=== PATIENT | male | born 1965 | race Caucasian/White ===

== ENCOUNTER 2019-04-16 12:33 | Emergency (ER) | payer BC ==
--- OUTSIDE RECORDS SUMMARY | 2019-04-16 12:35 | XMS REPORT ---
:1965 Author Organization [facility] Address [address] [place] [address] Care Team Providers Name Role Phone VINNY KUHN Unavailable Unavailable Problems This patient has no known problems. Allergies, Adverse Reactions, Alerts This patient has no known allergies or adverse reactions. Medications This patient has no known medications. Results Test Description Test Time Test Comments Text Results Atomic Results Result Comments MAGNESIUM 2018-01-03 11:37:00 Test Item Value Reference Range Comments MAGNESIUM (BEAKER) (test yjwi=313) 1.9 mg/dL 1.6-2.6 COMPREHENSIVE METABOLIC [id number] 11:37:00 Test Item Value Reference Range Comments TOTAL PROTEIN (BEAKER) 5.6 gm/dL 6.0-8.3 (test wdnd=197) ALBUMIN (BEAKER) (test 3.1 g/dL 3.5-5.0 odny=5102) ALKALINE PHOSPHATASE 54 U/L 40-150 (BEAKER) (test xitw=668) BILIRUBIN TOTAL (BEAKER) 0.6 mg/dL 0.2-1.2 (test lxgw=305) SODIUM (BEAKER) (test 143 meq/L 136-145 ytwp=229) POTASSIUM (BEAKER) (test 3.9 meq/L 3.5-5.1 htwm=790) CHLORIDE (BEAKER) (test 107 meq/L 98-107 kpvm=491) CO2 (BEAKER) (test 28 meq/L 22-29 mebx=244) BLOOD UREA NITROGEN 13 mg/dL 7-21 (BEAKER) (test eddb=589) CREATININE (BEAKER) (test 0.85 mg/dL 0.57-1.25 dsuo=543) GLUCOSE RANDOM (BEAKER) 91 mg/dL 70-105 (test yjvs=863) CALCIUM (BEAKER) (test 9.1 mg/dL 8.4-10.2 hlse=525) AST (SGOT) (BEAKER) (test 14 U/L 5-34 ooib=445) ALT (SGPT) (BEAKER) (test 14 U/L 6-55 mqht=153) EGFR (BEAKER) (test 95 mL/min/1.73 sq m ESTIMATED GFR IS NOT ivzc=9274) ACCURATE CREATININE CLEARANCE IN PREDICTING GLOMERULAR FILTRATION RATE. ESTIMATED GFR IS NOT APPLICABLE FOR DIALYSIS PATIENTS. CBC W/PLT COUNT & AUTO [id number] 11:07:00 Test Item Value Reference Range Comments WHITE BLOOD CELL COUNT (BEAKER) (test tukx=454) 6.3 K/ L 3.5-10.5 RED BLOOD CELL COUNT (BEAKER) (test uwac=444) 4.43 M/ L 4.63-6.08 HEMOGLOBIN (BEAKER) (test uvft=051) 13.9 GM/DL 13.7-17.5 HEMATOCRIT (BEAKER) (test eius=334) 43.3 % 40.1-51.0 MEAN CORPUSCULAR VOLUME (BEAKER) (test gpkl=659) 97.7 fL 79.0-92.2 MEAN CORPUSCULAR HEMOGLOBIN (BEAKER) (test 31.4 pg 25.7-32.2 xqsh=589) MEAN CORPUSCULAR HEMOGLOBIN CONC (BEAKER) (test 32.1 GM/DL 32.3-36.5 djkb=150) RED CELL DISTRIBUTION WIDTH (BEAKER) (test 13.2 % 11.6-14.4 qevh=419) PLATELET COUNT (BEAKER) (test ujnp=786) 272 K/CU MM 150-450 MEAN PLATELET VOLUME (BEAKER) (test myep=801) 9.3 fL 9.4-12.4 NUCLEATED RED BLOOD CELLS (BEAKER) (test 0 /100 WBC 0-0 bbvj=758) NEUTROPHILS RELATIVE PERCENT (BEAKER) (test 59 % lblc=423) LYMPHOCYTES RELATIVE PERCENT (BEAKER) (test 25 % vtcr=454) MONOCYTES RELATIVE PERCENT (BEAKER) (test 11 % rfjk=257) EOSINOPHILS RELATIVE PERCENT (BEAKER) (test 2 % jdqa=132) BASOPHILS RELATIVE PERCENT (BEAKER) (test 1 % lqdr=862) NEUTROPHILS ABSOLUTE COUNT (BEAKER) (test 3.73 K/ L 1.78-5.38 ucew=580) LYMPHOCYTES ABSOLUTE COUNT (BEAKER) (test 1.56 K/ L 1.32-3.57 gubj=517) MONOCYTES ABSOLUTE COUNT (BEAKER) (test 0.70 K/ L 0.30-0.82 dkkw=293) EOSINOPHILS ABSOLUTE COUNT (BEAKER) (test 0.14 K/ L 0.04-0.54 xnrd=279) BASOPHILS ABSOLUTE COUNT (BEAKER) (test 0.09 K/ L 0.01-0.08 onuo=397) IMMATURE GRANULOCYTES-RELATIVE PERCENT (BEAKER) 1 % 0-1 (test rbjm=1791) [id number] 11:35:00 Test Item Value Reference Range Comments MAGNESIUM (BEAKER) (test qtmj=204) 2.0 mg/dL 1.6-2.6 COMPREHENSIVE METABOLIC [id number] 11:35:00 Test Item Value Reference Range Comments TOTAL PROTEIN (BEAKER) 5.0 gm/dL 6.0-8.3 (test awca=682) ALBUMIN (BEAKER) (test 2.7 g/dL 3.5-5.0 uyhl=8578) ALKALINE PHOSPHATASE 53 U/L 40-150 (BEAKER) (test vlbm=304) BILIRUBIN TOTAL (BEAKER) 0.4 mg/dL 0.2-1.2 (test kufu=645) SODIUM (BEAKER) (test 140 meq/L 136-145 eohn=776) POTASSIUM (BEAKER) (test 3.7 meq/L 3.5-5.1 zccv=234) CHLORIDE (BEAKER) (test 108 meq/L 98-107 qhjf=144) CO2 (BEAKER) (test 27 meq/L 22-29 hluj=109) BLOOD UREA NITROGEN 12 mg/dL 7-21 (BEAKER) (test kloo=141) CREATININE (BEAKER) (test 0.84 mg/dL 0.57-1.25 jbcb=274) GLUCOSE RANDOM (BEAKER) 67 mg/dL 70-105 (test hdsy=778) CALCIUM (BEAKER) (test 8.4 mg/dL 8.4-10.2 nsbv=697) AST (SGOT) (BEAKER) (test 15 U/L 5-34 ptht=294) ALT (SGPT) (BEAKER) (test 17 U/L 6-55 ifzq=865) EGFR (BEAKER) (test 96 mL/min/1.73 sq m ESTIMATED GFR IS NOT onpz=5801) ACCURATE CREATININE CLEARANCE IN PREDICTING GLOMERULAR FILTRATION RATE. ESTIMATED GFR IS NOT APPLICABLE FOR DIALYSIS PATIENTS. CBC W/PLT COUNT & AUTO [id number] 11:01:00 Test Item Value Reference Range Comments WHITE BLOOD CELL COUNT (BEAKER) (test ddaz=356) 6.0 K/ L 3.5-10.5 RED BLOOD CELL COUNT (BEAKER) (test fzel=796) 3.97 M/ L 4.63-6.08 HEMOGLOBIN (BEAKER) (test hzvl=617) 12.6 GM/DL 13.7-17.5 HEMATOCRIT (BEAKER) (test zlnd=634) 39.0 % 40.1-51.0 MEAN CORPUSCULAR VOLUME (BEAKER) (test mvjp=616) 98.2 fL 79.0-92.2 MEAN CORPUSCULAR HEMOGLOBIN (BEAKER) (test 31.7 pg 25.7-32.2 lezu=427) MEAN CORPUSCULAR HEMOGLOBIN CONC (BEAKER) (test 32.3 GM/DL 32.3-36.5 ctzm=024) RED CELL DISTRIBUTION WIDTH (BEAKER) (test 13.1 % 11.6-14.4 cxqi=435) PLATELET COUNT (BEAKER) (test jttp=254) 222 K/CU MM 150-450 MEAN PLATELET VOLUME (BEAKER) (test ghqw=617) 9.6 fL 9.4-12.4 NUCLEATED RED BLOOD CELLS (BEAKER) (test 0 /100 WBC 0-0 gobx=312) NEUTROPHILS RELATIVE PERCENT (BEAKER) (test 62 % kgoz=581) LYMPHOCYTES RELATIVE PERCENT (BEAKER) (test 23 % cfdd=872) MONOCYTES RELATIVE PERCENT (BEAKER) (test 11 % kavp=857) EOSINOPHILS RELATIVE PERCENT (BEAKER) (test 2 % nhni=988) BASOPHILS RELATIVE PERCENT (BEAKER) (test 1 % rjkn=049) NEUTROPHILS ABSOLUTE COUNT (BEAKER) (test 3.72 K/ L 1.78-5.38 xnms=188) LYMPHOCYTES ABSOLUTE COUNT (BEAKER) (test 1.36 K/ L 1.32-3.57 ffql=776) MONOCYTES ABSOLUTE COUNT (BEAKER) (test 0.65 K/ L 0.30-0.82 pkhf=278) EOSINOPHILS ABSOLUTE COUNT (BEAKER) (test 0.14 K/ L 0.04-0.54 yzhq=884) BASOPHILS ABSOLUTE COUNT (BEAKER) (test 0.07 K/ L 0.01-0.08 arsx=557) IMMATURE GRANULOCYTES-RELATIVE PERCENT (BEAKER) 1 % 0-1 (test rizn=6732) URINALYSIS W/ [id number] 16:17:00 Test Item Value Reference Range Comments COLOR (BEAKER) (test eucb=386) Yellow CLARITY (BEAKER) (test jesu=101) Clear SPECIFIC GRAVITY UA (BEAKER) (test buwg=849) 1.011 1.001-1.035 PH UA (BEAKER) (test jdnv=488) 6.0 5.0-8.0 PROTEIN UA (BEAKER) (test wlnh=685) 300 mg/dL Negative GLUCOSE UA (BEAKER) (test pgyj=492) Negative Negative KETONES UA (BEAKER) (test ixxg=521) Negative Negative BILIRUBIN UA (BEAKER) (test cbjr=307) Negative Negative BLOOD UA (BEAKER) (test jriv=182) Moderate Negative NITRITE UA (BEAKER) (test sonu=915) Negative Negative LEUKOCYTE ESTERASE UA (BEAKER) (test umex=689) Negative Negative UROBILINOGEN UA (BEAKER) (test ltmj=430) 0.2 mg/dL 0.2-1.0 RBC UA (BEAKER) (test embs=737) 3 /HPF WBC UA (BEAKER) (test tqap=373) 2 /HPF MUCUS (BEAKER) (test bniw=7536) Rare SOURCE(BEAKER) (test lcpj=6767) [id number] 15:50:00 Test Item Value Reference Range Comments MAGNESIUM (BEAKER) (test ceyg=898) 1.8 mg/dL 1.6-2.6 COMPREHENSIVE METABOLIC [id number] 15:50:00 Test Item Value Reference Range Comments TOTAL PROTEIN (BEAKER) 5.6 gm/dL 6.0-8.3 (test wcvn=389) ALBUMIN (BEAKER) (test 3.1 g/dL 3.5-5.0 jabt=9458) ALKALINE PHOSPHATASE 50 U/L 40-150 (BEAKER) (test tmgn=256) BILIRUBIN TOTAL (BEAKER) 0.4 mg/dL 0.2-1.2 (test tdvk=859) SODIUM (BEAKER) (test 143 meq/L 136-145 wdft=454) POTASSIUM (BEAKER) (test 3.8 meq/L 3.5-5.1 xmxh=680) CHLORIDE (BEAKER) (test 105 meq/L 98-107 lnnc=114) CO2 (BEAKER) (test 24 meq/L 22-29 xbff=021) BLOOD UREA NITROGEN 12 mg/dL 7-21 (BEAKER) (test snym=047) CREATININE (BEAKER) (test 0.79 mg/dL 0.57-1.25 ulvc=357) GLUCOSE RANDOM (BEAKER) 109 mg/dL 70-105 (test izwn=205) CALCIUM (BEAKER) (test 9.2 mg/dL 8.4-10.2 wbyg=965) AST (SGOT) (BEAKER) (test 16 U/L 5-34 apwy=436) ALT (SGPT) (BEAKER) (test 16 U/L 6-55 glfx=087) EGFR (BEAKER) (test 103 mL/min/1.73 sq ESTIMATED GFR IS NOT peyj=9230) m ACCURATE CREATININE CLEARANCE IN PREDICTING GLOMERULAR FILTRATION RATE. ESTIMATED GFR IS NOT APPLICABLE FOR DIALYSIS PATIENTS. PROTEIN, RANDOM [id number] 15:10:00 Test Item Value Reference Range Comments PROTEIN, URINE (BEAKER) (test ktvy=2254) 285 mg/dL 0-14 CREATININE, RANDOM [id number] 14:54:00 Test Item Value Reference Range Comments CREATININE URINE (BEAKER) (test xtzt=852) 119.2 mg/dL Reference Range: No NormalsPROTHROMBIN [id number] 14:33:00 Test Item Value Reference Range Comments PROTIME (BEAKER) (test qhwb=476) 18.1 seconds 11.7-14.7 INR (BEAKER) (test xstb=474) 1.5 <=5.9 RECOMMENDED COUMADIN/WARFARIN INR THERAPY RANGESSTANDARD DOSE: 2.0 - 3.0 Includes: PROPHYLAXIS forvenous thrombosis, systemic embolization; TREATMENT for venous thrombosis and/or pulmonary embolus.HIGH RISK: Target INR is 2.5-3.5 for patients with mechanical heart valves.CBC W/PLT COUNT & AUTO [id number] 14:29:00 Test Item Value Reference Range Comments WHITE BLOOD CELL COUNT (BEAKER) (test qmqi=416) 9.2 K/ L 3.5-10.5 RED BLOOD CELL COUNT (BEAKER) (test eler=866) 4.64 M/ L 4.63-6.08 HEMOGLOBIN (BEAKER) (test irks=076) 14.4 GM/DL 13.7-17.5 HEMATOCRIT (BEAKER) (test hpvn=801) 45.1 % 40.1-51.0 MEAN CORPUSCULAR VOLUME (BEAKER) (test dgmr=404) 97.2 fL 79.0-92.2 MEAN CORPUSCULAR HEMOGLOBIN (BEAKER) (test 31.0 pg 25.7-32.2 htzx=805) MEAN CORPUSCULAR HEMOGLOBIN CONC (BEAKER) (test 31.9 GM/DL 32.3-36.5 ozup=169) RED CELL DISTRIBUTION WIDTH (BEAKER) (test 13.3 % 11.6-14.4 yjfj=503) PLATELET COUNT (BEAKER) (test lvzm=402) 297 K/CU MM 150-450 MEAN PLATELET VOLUME (BEAKER) (test wefz=190) 9.6 fL 9.4-12.4 NUCLEATED RED BLOOD CELLS (BEAKER) (test 0 /100 WBC 0-0 bgpj=219) NEUTROPHILS RELATIVE PERCENT (BEAKER) (test 74 % akzg=189) LYMPHOCYTES RELATIVE PERCENT (BEAKER) (test 15 % lbhy=599) MONOCYTES RELATIVE PERCENT (BEAKER) (test 8 % kfgc=342) EOSINOPHILS RELATIVE PERCENT (BEAKER) (test 1 % npwi=118) BASOPHILS RELATIVE PERCENT (BEAKER) (test 1 % kimw=989) NEUTROPHILS ABSOLUTE COUNT (BEAKER) (test 6.82 K/ L 1.78-5.38 yyxq=674) LYMPHOCYTES ABSOLUTE COUNT (BEAKER) (test 1.41 K/ L 1.32-3.57 wmxg=682) MONOCYTES ABSOLUTE COUNT (BEAKER) (test 0.69 K/ L 0.30-0.82 eiep=915) EOSINOPHILS ABSOLUTE COUNT (BEAKER) (test 0.11 K/ L 0.04-0.54 rrgc=856) BASOPHILS ABSOLUTE COUNT (BEAKER) (test 0.07 K/ L 0.01-0.08 pjdr=288) IMMATURE GRANULOCYTES-RELATIVE PERCENT (BEAKER) 1 % 0-1 (test ahow=8661) [id number] 14:49:00 Test Item Value Reference Range Comments MAGNESIUM (BEAKER) (test aebc=581) 1.9 mg/dL 1.6-2.6 COMPREHENSIVE METABOLIC [id number] 14:49:00 Test Item Value Reference Range Comments TOTAL PROTEIN (BEAKER) 5.4 gm/dL 6.0-8.3 (test blet=322) ALBUMIN (BEAKER) (test 2.9 g/dL 3.5-5.0 nkgs=8926) ALKALINE PHOSPHATASE 52 U/L 40-150 (BEAKER) (test qpod=378) BILIRUBIN TOTAL (BEAKER) 0.3 mg/dL 0.2-1.2 (test cauo=314) SODIUM (BEAKER) (test 141 meq/L 136-145 zjxs=694) POTASSIUM (BEAKER) (test 3.6 meq/L 3.5-5.1 dcwh=748) CHLORIDE (BEAKER) (test 106 meq/L 98-107 divn=824) CO2 (BEAKER) (test 28 meq/L 22-29 xqax=729) BLOOD UREA NITROGEN 18 mg/dL 7-21 (BEAKER) (test mkdr=552) CREATININE (BEAKER) (test 1.03 mg/dL 0.57-1.25 xcxp=115) GLUCOSE RANDOM (BEAKER) 56 mg/dL 70-105 (test qyje=907) CALCIUM (BEAKER) (test 8.6 mg/dL 8.4-10.2 okyx=385) AST (SGOT) (BEAKER) (test 14 U/L 5-34 bgin=234) ALT (SGPT) (BEAKER) (test 13 U/L 6-55 rffq=277) EGFR (BEAKER) (test 76 mL/min/1.73 sq m ESTIMATED GFR IS NOT cpcj=3214) ACCURATE CREATININE CLEARANCE IN PREDICTING GLOMERULAR FILTRATION RATE. ESTIMATED GFR IS NOT APPLICABLE FOR DIALYSIS PATIENTS. CBC W/PLT COUNT & AUTO [id number] 14:33:00 Test Item Value Reference Range Comments WHITE BLOOD CELL COUNT (BEAKER) (test hwat=477) 6.1 K/ L 3.5-10.5 RED BLOOD CELL COUNT (BEAKER) (test mhbi=283) 4.18 M/ L 4.63-6.08 HEMOGLOBIN (BEAKER) (test qefw=726) 13.2 GM/DL 13.7-17.5 HEMATOCRIT (BEAKER) (test ynwu=310) 40.3 % 40.1-51.0 MEAN CORPUSCULAR VOLUME (BEAKER) (test nbwf=456) 96.4 fL 79.0-92.2 MEAN CORPUSCULAR HEMOGLOBIN (BEAKER) (test 31.6 pg 25.7-32.2 nhnd=592) MEAN CORPUSCULAR HEMOGLOBIN CONC (BEAKER) (test 32.8 GM/DL 32.3-36.5 ejfq=960) RED CELL DISTRIBUTION WIDTH (BEAKER) (test 13.4 % 11.6-14.4 qjsb=787) PLATELET COUNT (BEAKER) (test fasm=412) 255 K/CU MM 150-450 MEAN PLATELET VOLUME (BEAKER) (test alsv=631) 9.7 fL 9.4-12.4 NUCLEATED RED BLOOD CELLS (BEAKER) (test 0 /100 WBC 0-0 hcxy=752) NEUTROPHILS RELATIVE PERCENT (BEAKER) (test 54 % xzwk=282) LYMPHOCYTES RELATIVE PERCENT (BEAKER) (test 32 % gdru=217) MONOCYTES RELATIVE PERCENT (BEAKER) (test 9 % qlks=365) EOSINOPHILS RELATIVE PERCENT (BEAKER) (test 3 % swso=631) BASOPHILS RELATIVE PERCENT (BEAKER) (test 1 % rlmn=949) NEUTROPHILS ABSOLUTE COUNT (BEAKER) (test 3.30 K/ L 1.78-5.38 htpd=200) LYMPHOCYTES ABSOLUTE COUNT (BEAKER) (test 1.92 K/ L 1.32-3.57 qgmn=461) MONOCYTES ABSOLUTE COUNT (BEAKER) (test 0.57 K/ L 0.30-0.82 oxtc=997) EOSINOPHILS ABSOLUTE COUNT (BEAKER) (test 0.18 K/ L 0.04-0.54 xtwv=096) BASOPHILS ABSOLUTE COUNT (BEAKER) (test 0.08 K/ L 0.01-0.08 vrvz=131) IMMATURE GRANULOCYTES-RELATIVE PERCENT (BEAKER) 1 % 0-1 (test dcth=4408)
[2019-04-16 13:03] LABS: Absolute Lymphocytes (CBC) 1.5 K/uL (0.7-4.9); Basophils % 0.6 % (0-1.3); Hematocrit 41.6 % (39.6-49.0); Lymphocytes % 14.9 % (15.3-44.8); MPV 7.4 fL (7.6-11.3); RBC Red Blood Cell Count 4.43 M/uL (4.33-5.43)
[2019-04-16] MEDS ORDERED: FENTANYL CITR 100 MCG/2 ML ONE (13:12)
--- NOTE | 2019-04-16 13:30 | RAD REPORT ---
EXAM DESCRIPTION: CT - Head C Spine Cap Kemar Barlow - 04/16/2019 1:06 pm CLINICAL HISTORY: Fall, head, neck, chest and abdomen pain COMPARISON: CT chest abdomen and pelvis 2016 TECHNIQUE: Axial [address] head images were obtained. Axial [address] cervical spine images were obtaine d with sagittal and coronal reconstruction images reviewed. During dynamic enhancement of 100mL non-i onic contrast, axial 5 mm images of the chest, abdomen and pelvis were obtained. All CT scans are performed using dose optimization technique as appropriate and may include automated exposure control or mA/KV adjustment according to patient size. FINDINGS: No intracranial hemorrhage, mass or edema. No midline shift or abnormal fluid collection. Mastoid air cells and paranasal sinuses are clear. No skull fracture. CT cervical spine imaging shows normal height. Normal alignment of the vertebrae. No disc space narro wing. No paraspinal mass or hematoma seen. Posterior endplate spurring changes are present at C5-6 an d C6-7 with borderline to mild central spinal stenosis. Significant foraminal encroachment on the lef t at C5-6. Central canal detail is inherently limited. Concerns for traumatic disc herniation or trau matic cord injury can be further addressed with MR imaging. CT chest shows no pneumothorax, pulmonary contusion or pleural fluid collection. No mediastinal hemat sanford and the aorta and pulmonary arteries are unremarkable. No chest will mass or abnormal axillary fi nding. No displaced rib fracture or other significant bony finding. CT abdomen and pelvis show no injury to solid abdominal viscera. Gallbladder and biliary tree are unr emarkable. No bowel injury or significant finding. Diverticulosis is present in the sigmoid colon. No free air, free fluid or abnormal stranding. No urinary bladder abnormality. Disc and bone degenerative changes are present. Chronic left-side L5 pars interarticularis defect is seen. No acute bone finding identifiable. IMPRESSION: No hemorrhage or acute CT Head finding. Degenerative change as detailed without acute cervical spine finding. No acute traumatic injury to the chest and no significant CT chest finding. No traumatic injury to the abdomen or pelvis. No acute or significant finding.
[2019-04-16] MEDS ORDERED: NA CHLORIDE 0.9% 1,000 ML ONE (13:32)
[2019-04-16] MEDS ORDERED: HYDROMORPHONE HCL 1 MG/ML INJ ONE (13:37)
[2019-04-16] MEDS ORDERED: ONDANSETRON 4 MG/2 ML VIAL ONE (13:37)
--- NOTE | 2019-04-16 14:51 | RAD REPORT ---
EXAM DESCRIPTION: Shoulder Right 2 View - 04/16/2019 1:46 pm CLINICAL HISTORY: Fall, shoulder pain COMPARISON: None. TECHNIQUE: Internal and external rotation views of the right shoulder were obtained. FINDINGS: There is no fracture or dislocation. Relative widening of the AC joint is not outside of range of normal. A mild AC separation is not excluded and can be correlated with left AC joint as cli nical findings warrant. Degenerative changes are present to the undersurface of the acromion with vladimir rowed acromial humeral joint space. This can be indirect evidence of chronic rotator cuff tear. No ac buckland finding in the ribs and parenchyma of the upper chest. IMPRESSION: No fracture or dislocation of the proximal humerus. Prominent for age acromial humeral joint degenerative change with possible chronic rotator cuff tear. Mild AC joint separation cannot be excluded. No displacement of the clavicle. Comparison can be made with asymptomatic left shoulder as findings warrant.
--- NOTE | 2019-04-16 15:29 | ER ---
Nurse's Notes [facility] Name: Chay Matthews Jr Age: 53 yrs Sex: Male : 1965 Arrival Date: 04/16/2019 Time: 12:38 Bed 4 Private MD: Diagnosis: Other sprain of right shoulder joint;Rib Contusion Presentation: 04/16 12:38 Presenting complaint: EMS states: EMS states patient was in a "mccann cone picker" lift when ae4 a large branch struck the left while the lift was in raised in he air approx 30ft, knocking the lift and the patient to the ground (grass). The left crushed the patient's right shoulder. Transition of care: patient was not received from another setting of care. Onset of symptoms was April 16, 2019 at 12:00. Risk Assessment: Do you want to hurt yourself or someone else? Patient reports no desire to harm self or others. Care prior to arrival: Right shoulder splint applied, c-collar applied, c spine cleared on scene,c-collar reapplied per provider. 20 G IV inserted by EMS to right AC. 12:38 Method Of Arrival: EMS: [facility] ae4 12:38 Acuity: BIJAL 2 ae4 14:51 Initial Sepsis Screen: Does the patient meet any 2 criteria? No. Patient's initial ae4 sepsis screen is negative. Does the patient have a suspected source of infection? No. Patient's initial sepsis screen is negative. Triage Assessment: 12:48 General: Appears uncomfortable, slender, Behavior is calm, cooperative. Pain: Complains ae4 of pain in anterior aspect of right shoulder and posterior aspect of right shoulder Pain does not radiate. Pain currently is 10 out of 10 on a pain scale. EENT: No signs and/or symptoms were reported regarding the EENT system. Neuro: Level of Consciousness is awake, alert, obeys commands, Oriented to person, place, time, situation, Appropriate for age. Cardiovascular: Heart tones S1 S2 present Patient's skin is warm and dry. Rhythm is regular. Respiratory: Airway is patent Respiratory effort is even, unlabored, shallow, Respiratory pattern is regular, symmetrical, Breath sounds are clear bilaterally. Breath sounds with rales in left lower lobe Crepitus is noted on left lateral anterior chest. GI: No signs and/or symptoms were reported involving the gastrointestinal system. Abdomen is round Bowel sounds present X 4 quads. Abd is soft and non tender X 4 quads. : No signs and/or symptoms were reported regarding the genitourinary system. Derm: Skin is pink, warm \\T\\ dry. Derm: Wound noted anterior aspect of right shoulder Other: Redness, and abrasions to posterior right shoulder. Musculoskeletal: Swelling present in anterior aspect of right shoulder and posterior aspect of right shoulder. Historical: - Allergies: 14:18 No Known Allergies; ae4 - Home Meds: 13:09 lisinopril 40 mg Oral tab 1 tab once daily [Active]; prednisone 1 mg Oral tab once ae4 daily [Active]; metoprolol tartrate 25 mg Oral tab 1 tab once daily [Active]; aspirin 81 mg Oral chew 1 tab once daily [Active]; Vitamin D 50 mcg once daily Oral [Active]; - PMHx: 13:09 scrotal mass; Hypertension; ae4 - Immunization history:: Adult Immunizations up to date, Last tetanus immunization: up to date. - Social history:: Smoking status: Patient uses tobacco products, smokes one-half pack cigarettes per day. - Ebola Screening: : Patient denies travel to an Ebola-affected area in the 21 days before illness onset No symptoms or risks identified at this time. Screenin:14 Abuse screen: Denies threats or abuse. Nutritional screening: No deficits noted. ae4 Tuberculosis screening: No symptoms or risk factors identified. Fall Risk Fall in past 12 months (25 points). No secondary diagnosis (0 pts). IV access (20 points). Ambulatory Aid- None/Bed Rest/Nurse Assist (0 pts). Gait- Weak (10 pts.). Mental Status- Oriented to own ability (0 pts). Assessment: 13:00 Pain: Complains of pain in left breast. ae4 13:46 Reassessment: Radiology at bedside obtaining shoulder x-ray. Patient states feeling ae4 better. 14:14 Reassessment: Patient appears in no apparent distress at this time. Patient and/or ae4 family updated on plan of care and expected duration. Pain level reassessed. Patient states feeling better. Patient states symptoms have improved. Vital Signs: 12:42 BP 138 / 85; Pulse 73; Resp 18; Temp 98.3(O); Pulse Ox 100% on R/A; Weight 74.84 kg (R);ae4 13:21 BP 131 / 90; Pulse 75; Resp 20; Pulse Ox 99% on R/A; ae4 13:46 BP 126 / 87; Pulse 73; Resp 15; Pulse Ox 96% on R/A; ae4 14:14 BP 114 / 72; Pulse 62; Resp 15; Pulse Ox 100% on R/A; ae4 14:42 BP 115 / 68; Pulse 64; Resp 16; Pulse Ox 99% ; ae4 ED Course: 11:48 Maintain EMS IV. Dressing intact. Good blood return noted. Site clean \\T\\ dry. Gauge \\T\\ ae 4 site: 20 G right AC.. 12:38 Patient arrived in ED. iw 12:41 Venkat Boogie PA is PHCP. jmm 12:41 Guillermo Aguirre MD is Attending Physician. jmm 12:42 Nolberto Bui RN is Primary Nurse. ae4 12:48 Placed in gown. Bed in low position. Call light in reach. Side rails up X2. Cardiac ae4 monitor on. Pulse ox on. NIBP on. Warm blanket given. 12:48 Arm band placed on left wrist. ae4 13:06 CT Traumagram (Head C Spine CAP W Con) In Process Unspecified. EDMS 13:07 Triage completed. ae4 13:47 Shoulder Right (2 View) XRAY In Process Unspecified. EDMS 15:34 INCENTIVE SPIROMETRY Sent. ae4 16:00 No provider procedures requiring assistance completed. IV discontinued, intact, ae4 bleeding controlled, No redness/swelling at site. Pressure dressing applied. Administered Medications: 13:00 Drug: Zofran 4 mg Route: IVP; Site: right antecubital; ae4 13:42 Follow up: Response: No adverse reaction; No adverse reactio, no nausea with pain ae4 medication administration. 13:14 Drug: fentaNYL (PF) 50 mcg Route: IVP; Site: right antecubital; ae4 13:42 Follow up: Response: Pain is unchanged, physician notified ae4 13:42 Follow up: Response: RASS: Restless (+1) ae4 13:30 Drug: NS 0.9% 1000 ml Route: IV; Rate: 1 bolus; Site: right antecubital; jl7 13:41 Drug: Dilaudid 1 mg Route: IVP; Site: right antecubital; ae4 13:42 Follow up: Response: Pain is decreased; RASS: Alert and Calm (0) ae4 Outcome: 15:28 Discharge ordered by . mert 15:57 Patient left the ED. ae4 15:57 Discharged to home ambulatory. ae4 15:57 Condition: stable 15:57 Discharge instructions given to patient, significant other, Instructed on discharge instructions, follow up and referral plans. medication usage, Demonstrated understanding of instructions, follow-up care, medications, Prescriptions given X 1. Signatures: Dispatcher [employer] EDMS Venkat Boogie PA PA jmm Williams, Irene, RN Garrett Guillermo RN RN [id number] Nolberto Bui RN RN ae4 Corrections: (The following items were deleted from the chart) 14:17 11:48 Placed in gown. Bed in low position. Call light in reach. Side rails up X2. ae4 ae4 14:17 11:48 staff sonographer on. Pulse ox on. NIBP on. ae4 ae4 14:17 11:48 Warm blanket given. ae4 ae4 17:47 13:46 Reassessment: Radiology at bedside obtaining shoulder x-ray. ae4 ae4
--- NOTE | 2019-04-16 15:29 | EDPHYS ---
Physician Documentation [facility] Name: Chay Matthews Jr Age: 53 yrs Sex: Male : 1965 Arrival Date: 04/16/2019 Time: 12:38 Bed 4 Private MD: ED Physician Guillermo Aguirre HPI: 04/16 12:39 This 53 yrs old Male presents to ER via EMS with complaints of Trauma jmm Complaint, Shoulder Injury. 12:39 Trauma demographics: County: The injury occurred in [place]. Mechanism of injury: jmm Fall:. Associated injuries: The patient sustained injury to the chest. Onset: The symptoms/episode began/occurred acutely. This is a 53 year old male with a history of htn that presents to the ED with complaints of left sided rib pain and right shoulder pain which occurred just prior to arrival. 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 Denies LOC. . Historical: - Allergies: 14:18 No Known Allergies; ae4 - Home Meds: 13:09 lisinopril 40 mg Oral tab 1 tab once daily [Active]; prednisone 1 mg Oral tab once ae4 daily [Active]; metoprolol tartrate 25 mg Oral tab 1 tab once daily [Active]; aspirin 81 mg Oral chew 1 tab once daily [Active]; Vitamin D 50 mcg once daily Oral [Active]; - PMHx: 13:09 scrotal mass; Hypertension; ae4 - Immunization history:: Adult Immunizations up to date, Last tetanus immunization: up to date. - Social history:: Smoking status: Patient uses tobacco products, smokes one-half pack cigarettes per day. - Ebola Screening: : Patient denies travel to an Ebola-affected area in the 21 days before illness onset No symptoms or risks identified at this time. ROS: 12:39 Constitutional: Negative for fever, chills, and weight loss, Neck: Negative for injury, jmm pain, and swelling, Cardiovascular: Negative for chest pain, palpitations, and edema, Respiratory: Negative for shortness of breath, cough, wheezing, and pleuritic chest pain, Abdomen/GI: Negative for abdominal pain, nausea, vomiting, diarrhea, and constipation, Back: Negative for injury and pain. 12:39 MS/extremity: Positive for injury or acute deformity. 12:39 All other systems are negative. Exam: 12:39 Eyes: EOMI, no conjunctival erythema appreciated ENT: Moist Mucus Membranes [facility] 12:39 Constitutional: The patient appears in no acute distress, alert, awake. 12:39 Head/face: Exam is negative for acute changes, obvious evidence of injury or deformity, abrasion(s), beth signs, contusion, deformity, ecchymosis, erythema, hematoma, laceration(s), raccoon eyes, swelling, tenderness. 12:39 Neck: C-spine: appears grossly normal, no vertebral tenderness, no crepitus. 12:39 Chest/axilla: Palpation: tenderness, that is moderate, of the left lateral anterior chest. 12:39 Cardiovascular: Rate: normal, Rhythm: regular. 12:39 Respiratory: the patient does not display signs of respiratory distress, Respirations: normal, Breath sounds: are clear throughout. 12:39 Abdomen/GI: Inspection: abdomen appears normal, Bowel sounds: normal, Palpation: abdomen is soft and non-tender, in all quadrants. 12:39 Musculoskeletal/extremity: ROM: intact in all extremities, right anterior shoulder ttp, painful rom, full radial pulse, NVI. 12:39 Skin: Appearance: Color: normal in color. 12:39 Neuro: Orientation: is normal, Mentation: is normal, Memory: is normal. 12:39 Psych: Behavior/mood is pleasant, cooperative. Vital Signs: 12:42 BP 138 / 85; Pulse 73; Resp 18; Temp 98.3(O); Pulse Ox 100% on R/A; Weight 74.84 kg (R);ae4 13:21 BP 131 / 90; Pulse 75; Resp 20; Pulse Ox 99% on R/A; ae4 13:46 BP 126 / 87; Pulse 73; Resp 15; Pulse Ox 96% on R/A; ae4 14:14 BP 114 / 72; Pulse 62; Resp 15; Pulse Ox 100% on R/A; ae4 14:42 BP 115 / 68; Pulse 64; Resp 16; Pulse Ox 99% ; ae4 MDM: 12:41 Patient medically screened. mert 15:27 Data reviewed: vital signs, nurses notes. Counseling: I had a detailed discussion with mert the patient and/or guardian regarding: the historical points, exam findings, and any diagnostic results supporting the discharge/admit diagnosis, radiology results, the need for outpatient follow up, to return to the emergency department if symptoms worsen or persist or if there are any questions or concerns that arise at home. 04/16 12:39 Order name: Basic Metabolic Panel; Complete Time: 13:23 [facility] 04/16 12:39 Order name: CBC with Diff; Complete Time: 13:23 [facility] 04/16 12:39 Order name: CT Traumagram (Head C Spine CAP W Con); Complete Time: 13:30 [facility] 04/16 12:39 Order name: Creatinine for Radiology; Complete Time: 13:23 [facility] 04/16 12:39 Order name: Type And Screen; Complete Time: 13:41 [facility] 04/16 13:05 Order name: Shoulder Right (2 View) XRAY; Complete Time: 15:30 [facility] 04/16 12:39 Order name: Labs collected and sent; Complete Time: 12:57 [facility] 04/16 14:39 Order name: Sling; Complete Time: 15:34 [facility] 04/16 14:44 Order name: INCENTIVE SPIROMETRY [facility] Administered Medications: 13:00 Drug: Zofran 4 mg Route: IVP; Site: right antecubital; ae4 13:42 Follow up: Response: No adverse reaction; No adverse reactio, no nausea with pain ae4 medication administration. 13:14 Drug: fentaNYL (PF) 50 mcg Route: IVP; Site: right antecubital; ae4 13:42 Follow up: Response: Pain is unchanged, physician notified ae4 13:42 Follow up: Response: RASS: Restless (+1) ae4 13:30 Drug: NS 0.9% 1000 ml Route: IV; Rate: 1 bolus; Site: right antecubital; jl7 13:41 Drug: Dilaudid 1 mg Route: IVP; Site: right antecubital; ae4 13:42 Follow up: Response: Pain is decreased; RASS: Alert and Calm (0) ae4 Disposition: 04/17 07:48 Co-signature as Attending Physician, Guillermo Aguirre MD I agree with the assessment and kdr plan of care. Disposition: 04/16/19 15:28 Discharged to Home. Impression: Other sprain of right shoulder joint, Rib Contusion. - Condition is Stable. - Discharge Instructions: Rib Contusion, Shoulder Pain, Incentive Spirometer, Shoulder Sprain. - Prescriptions for Tylenol- Codeine #3 300-30 mg Oral Tablet - take 1 tablet by ORAL route every 6 hours As needed; 20 tablet. - Medication Reconciliation Form, Thank You Letter, Antibiotic Education, Prescription Opioid Use form. - Follow up: Private Physician; When: 2 - 3 days; Reason: Recheck today's complaints, Continuance of care, Re-evaluation by your physician. Signatures: Dispatcher [employer] EDMS Guillermo Aguirre MD MD kdr Mickail, Joel, PA PA jmm Leal, Jahala, RN RN jl7 Nolberto Bui, RN RN ae4 Corrections: (The following items were deleted from the chart) 04/16 15:57 15:28 04/16/2019 15:28 Discharged to Home. Impression: Other sprain of right shoulder ae4 joint; Rib Contusion. Condition is Stable. Forms are Medication Reconciliation Form, Thank You Letter, Antibiotic Education, Prescription Opioid Use. Follow up: Private Physician; When: 2 - 3 days; Reason: Recheck today's complaints, Continuance of care, Re-evaluation by your physician. mert
[2019-04-16 16:30] VITALS: TEMP 98.3
[2019-04-16 16:35] VITALS: BP 115/68; O2SAT 99
== END 2019-04-16 15:57 | disposition home or self-care (01) ==
LOC: ER 12:33
DX: S43.491A Other sprain of right shoulder joint, initial encounter (principal); S20.20XA Contusion of thorax, unspecified, initial encounter; W31.89XA Contact with other specified machinery, initial encounter; Y93.89 Activity, other specified; Y92.9 Unspecified place or not applicable; I10 Essential (primary) hypertension; Z79.82 Long term (current) use of aspirin; F17.210 Nicotine dependence, cigarettes, uncomplicated
CPT/HCPCS: 85025; 80048; 36415; 86900; 86850; 86901; 70450; 72125; 71260; 74177; 73030; 96375; 96374; 99284; Q9967; J3010; J1170; J7030; J2405